=== PATIENT | male | born 1975 | race Caucasian/White ===

== ENCOUNTER 2023-02-27 05:10 | Emergency (ER) | payer BC, SELFPAY ==
[2023-02-27 05:15] VITALS: BP 136/85; PULSE 65; RESP 18; TEMP 36.3; O2SAT 100; BMI 21.3
--- NOTE | 2023-02-27 05:39 | ED_ITS ---
HPI - General Adult General Chief complaint: Allergic Reaction Stated complaint: Allergic reaction,face swelling Time Seen by Provider: 02/27/23 05:20 Source: patient Mode of arrival: ambulatory Limitations: no limitations History of Present Illness HPI narrative: 47-year-old male presents the emergency department with swelling of his lips that started around 215 this morning, 2-1/2 hours prior to arrival. Symptoms are improving a little bit. He took but 2 Benadryl right away after he noticed the swelling. His only new exposure was a new mouthwash last night. Is not an entirely new product is he has used that in the past but use it again after a hiatus. No new animal or other topical exposures that he is aware of. He has had allergy testing for similar reactions in the past which were nonrevealing. Notes no swelling of the tongue, eyelids, throat. No shortness of breath or feelings of swallowing difficulty. No hives. No other reactions noted. He is otherwise feeling well with no fever or recent trauma. He reports his past medical history is benign, denies major long-term health problems. He is no longer taking any prescription medications, stating that he stop taking sertraline about a month ago. 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 ROS is notable for the allergic and HEENT symptoms as described above only, otherwise denies times 12 systems. Related Data Previous Rx's Medication Instructions Recorded prednisone 20 mg tablet 20 mg PO ONCE #1 tab 02/27/23 Allergies Allergy/AdvReac Type Severity Reaction Status Date / Time dogs Allergy Severe Uncoded 02/27/23 05:22 [facility] Social History Smoking Status: Current every day smoker Do you use any of these nicotine containing products: Vaping Products How often do you have a drink containing alcohol: 2-4 times a month AUDIT-C Alcohol total score: 2 Non-prescribed substance use: denies use Exam Const: Vital Signs, click to edit/add: Vital Signs - 24 hr 02/27/23 05:15 Temperature 97.3 F L Pulse Rate [Pulse Oximeter] 65 Respiratory Rate 18 Blood Pressure [Ri ght Upper Arm] 136/85 Pulse Oximetry 100 Oxygen Delivery Me thod Room Air Documenting provider has reviewed patient's vital signs: yes Common normals: no apparent distress General appearance: cooperative, comfortable and well kempt Other: Good historian, no intoxication or impairment HENMT: Common normals: normocephalic, head/scalp atraumatic and external nose normal Head and scalp: normocephalic and atraumatic Nose: external nose normal Other: Both lips with very minimal swelling, only on the outer lips, not the interview call mucosa. Normal dentition. Normal pharynx. Normal tongue. Normal uvula and palate. No swelling. Opens and closes the jaw without difficulty. Normal appearance of eyes, lids, facial skin Eye: Common normals: conjunctivae normal General eye: normal appearance of both eyes Conjunctiva: conjunctiva(e) normal Neck & C-Spine: Common normals: full ROM and no lymphadenopathy Resp: Common normals: normal respiratory effort, no use of accessory muscles and clear to auscultation bilaterally Effort & inspection: able to speak in complete sentences Auscultation: clear to auscultation bilaterally Cardio: Common normals: regular rate, regular rhythm, S1 normal heart sound, S2 normal heart sound and no murmurs Rate: regular rate Rhythm: regular rhythm Heart sounds: S1 normal and S2 normal Psych: Common normals: speech normal Appearance: well kempt Attitude: calm and engaged Speech: normal speech Mood and affect: euthymic mood Insight: insight good Judgement: judgment good Skin: Common normals: no rashes or lesions noted General skin exam: no rashes or lesions noted Course Course Hospital Course: Mild allergic reaction of uncertain etiology, 3+ hours duration with reported improvement, certainly no clinical worsening. No evidence of anaphylaxis. Recommended prednisone 20 mg p.o. x1 and a repeat dose tomorrow will be sent to his pharmacy. Loratadine 10 mg b.i.d. for the next 3 days and Benadryl 25 mg at bedtime and every 6 hours as needed. He will receive 20 mg of prednisone, 20 mg of famotidine and 10 mg of loratadine here in the ED. Counseled on alarm symptoms that would warrant repeat ED presentation. He verbalizes understanding and agreement. Uncertain if the mouthwash is the cause but advised him to stay away from it for the next couple of weeks. Do not recommend additional testing at this time. Vital Signs Vital signs: Initial Vital Signs Temperature 97.3 F L 09/02/23 05:15 Temperature Source Temporal Artery Scan 02/27/23 05:15 Pulse Rate 65 02/27/23 05:15 Respiratory Rate 18 02/27/23 05:15 Blood Pressure 136/85 02/27/23 05:15 Blood Pressure Mean 102 02/27/23 05:15 Blood Pressure Position Supine 02/27/23 05:15 Pulse Oximetry 100 02/27/23 05:15 Oxygen Delivery Method Room Air 02/27/23 05:15 Vital Signs Temperature 97.3 F L 02/27/23 05:15 Pulse Rate 65 02/27/23 05:15 Respiratory Rate 18 02/27/23 05:15 Blood Pressure 136/85 02/27/23 05:15 Pulse Oximetry 100 02/27/23 05:15 Oxygen Delivery Method Room Air 02/27/23 05:15 Temperature 97.3 F L 02/27/23 05:15 Pulse Rate 65 02/27/23 05:15 Respiratory Rate 18 02/27/23 05:15 Blood Pressure 136/85 02/27/23 05:15 Pulse Oximetry 100 02/27/23 05:15 Oxygen Delivery Method Room Air 02/27/23 05:15 Discharge Plan Discharge Clinical Impression: Allergic reaction Patient Disposition: Home, Self-Care Condition: Stable Instructions: General Allergic Reaction (ED) Additional Instructions: As we discussed, you are showing signs of a mild allergic reaction. Unfortunately, allergy testing is not likely to be helpful. He did an excellent job of taking Benadryl right away. We are not seeing any signs of severe reaction at this time. You have been given prednisone 20 mg to help stop the reaction. I will send another dose to your pharmacy for you to take tomorrow morning. Would like for you to take a nondrowsy antihistamine like Claritin, Jaye, or Zyrtec twice daily for the next 3 days. The generic equivalents are just fine. I would like for you to take Benadryl 25 mg at bedtime for the next 3 nights and also every 6 hours if you continue to notice increased swelling. As we discussed, the swelling will come and go of it and will increase with activity, eating and drinking, heat and other variables. If you start to notice throat swelling, tongue swelling, difficulty breathing, or significant worsening of symptoms, come back to the emergency department and or call 911. You do not need to follow-up with an pillow cleaner or your primary care doctor unless her symptoms fail to improve in a few days. Activity Level: No Restrictions Discharge Diet: Regular Prescriptions: New prednisone 20 mg tablet 20 mg PO ONCE Qty: 1 1RF Rx Instructions: take on 02/28/23 AM Follow Up/Referrals: Provider,Not a Local [Primary Care Provider] - Stand Alone Forms: [employer] Info Instructions
[2023-02-27] MEDS: FAMOTIDINE 20 MG TABLET PO (05:48)
[2023-02-27] MEDS: predniSONE 10 MG TABLET 20 MG PO (05:48)
[2023-02-27] MEDS: LORATADINE 10 MG TABLET PO (05:49)
== END 2023-02-27 05:54 | disposition home or self-care (01) ==
LOC: ED 05:48
PROVIDERS: Emergency Provider Family Medicine
DX: R22.0 Localized swelling, mass and lump, head (principal); T78.40XA Allergy, unspecified, initial encounter
CPT/HCPCS: 99283; 99284; A9270; J7512